=== PATIENT | male | born 1965 | race Caucasian/White ===

== ENCOUNTER 2018-06-28 11:44 | Emergency (ER) | payer BC ==
[2018-06-28 12:19] VITALS: RESP 18; TEMP 97.9
--- NOTE | 2018-06-28 14:09 | C.PDOC ---
History Of Present Illness 52 y/o male brought to ed by family s/p laceration to right index finger from a saw while cutting something. tdap utd per family. pt right handed. occurred 1130 am today. Time Seen by Provider: 06/28/18 13:36 Chief Complaint (Nursing): Abnormal Skin Integrity History Per: Patient History/Exam Limitations: no limitations Onset/Duration Of Symptoms: Hrs Current Symptoms Are (Timing): Still Present Severity: Moderate Past Medical History Reviewed: Historical Data, Nursing Documentation, Vital Signs Vital Signs: Last Vital Signs Temp 97.9 F 06/28/18 11:57 Pulse 78 06/28/18 11:57 Resp 18 06/28/18 11:57 BP 134/94 H 06/28/18 11:57 Pulse Ox 95 06/28/18 11:57 - Medical History PMH: HTN, Hyperlipidemia Other Surgeries: Hx of surgeries Family History: States: No Known Family Hx - Social History Hx Alcohol Use: No Hx Substance Use: No - Immunization History Hx Tetanus Toxoid Vaccination: Yes Hx Influenza Vaccination: No Hx Pneumococcal Vaccination: No Review Of Systems Constitutional: Negative for: Fever, Chills Skin: Positive for: Other (laceration to right index finger) Physical Exam - Physical Exam Appears: Non-toxic, No Acute Distress Skin: Warm, Dry, Other (approx 2.5 cm curved laceration and 1 cm linear laceration to right index finger) Head: Atraumatic, Normacephalic Extremity: Normal ROM, No Tenderness, Capillary Refill (< 2 seconds), No Swelling Neurological/Psych: Oriented x3, Normal Speech, Normal Cognition, Normal Motor, Normal Sensation ED Course And Treatment O2 Sat by Pulse Oximetry: 95 (RA) Pulse Ox Interpretation: Normal Laceration - Laceration Repair Right Index Finger 1st Laceration Wound Length (In cm): 2.5 cm Description Of Wound: Irregular (curved) Wound Cleansed With: Betadine, Sterile Saline Anesthesia: Lidocaine 1% Wound Examination: Irrigated With Saline, No FB With Wound Exploration, No Tendon Injury With Wound Exploration Wound Closure: Suture (7 sutures) Suture Technique And Material Used: Nylon (4-0 Nylon) Wound Complexity: Simple Right Index Finger 2nd Laceration Wound Length (In cm): 1 cm Description Of Wound: Linear Wound Cleansed With: Betadine, Sterile Saline Anesthesia: Lidocaine 1% Wound Examination: Irrigated With Saline, No FB With Wound Exploration, No Tendon Injury With Wound Exploration Wound Closure: Suture (3 sutures) Suture Technique And Material Used: Nylon (4-0 Nylon) Wound Complexity: Simple Medical Decision Making Medical Decision Making: tdap utd. laceration repaired. bscitracin applied. d/c home with keflex. suture removal 7 days. Disposition Counseled Patient/Family Regarding: Diagnosis, Need For Followup, Rx Given - Disposition Disposition: HOME/ ROUTINE Disposition Time: 16:35 Condition: GOOD Additional Instructions: Keep finger clean and dry with dressing on until tomorrow. Tomorrow- remove dressing, wash gently with soap and water, then reapply antibiotic ointment and clean dressing. Take antibiotics as prescribed. Take Tylenol for pain if needed. Suture removal in 7-10 days. Return to E Rfor any sign of infection such as redness, swelling, fever, pus from wound or any other concerns. Prescriptions: Acetaminophen [Tylenol 325mg tab] 650 mg PO Q4 #50 tab Bacitracin OINT 1 applic TOP BID #1 tube Cephalexin [cephalexin] 500 mg PO QID #28 cap Instructions: Laceration Repair With Stitches (DC) Forms: General Discharge Instructions, [facility] (Iranian), Work Excuse - Clinical Impression Clinical Impression: Laceration of right index finger
[2018-06-28] MEDS ORDERED: Lidocaine 1% Inj (20ml) INFIL ONE (14:17)
[2018-06-28] MEDS ORDERED: Tdap Vaccine 0.5 ml Vial (10-64 yrs) IM ONE (14:17)
[2018-06-28] MEDS ORDERED: Bacitracin 500 Units/gm Oint Foilpak UD TOP ONE (14:17)
[2018-06-28] MEDS ORDERED: Bacitracin 500 Units/gm Oint Foilpak UD ONE (14:26)
[2018-06-28] MEDS ORDERED: Lidocaine Hydrochloride 5 ML INJ ONE ×2 (14:26→15:02)
[2018-06-28 17:00] VITALS: BP 149/84; PULSE 68
[2018-07-01 14:53] VITALS: O2SAT 95
== END 2018-06-28 17:01 | disposition home or self-care (01) ==
LOC: C.ER 11:44
DX: S61.210A Laceration without foreign body of right index finger without damage to nail, initial encounter (principal); W31.2XXA Contact with powered woodworking and forming machines, initial encounter; I10 Essential (primary) hypertension; E78.5 Hyperlipidemia, unspecified

== ENCOUNTER 2018-07-08 07:56 | Emergency (ER) | payer BC ==
[2018-07-08 08:02] VITALS: BMI 28.6
[2018-07-08 08:05] VITALS: BP 127/99; PULSE 72; TEMP 98.1; O2SAT 98
--- NOTE | 2018-07-08 08:19 | C.PDOC ---
History Of Present Illness 52 years old male presents to ED for suture removal. Patient reports right index finger laceration x10 days ago. Denies any pain or physical complaints. Time Seen by Provider: 07/08/18 08:05 Chief Complaint (Nursing): Suture/Staple Removal History Per: Patient History/Exam Limitations: no limitations Onset/Duration Of Symptoms: Hrs Current Symptoms Are (Timing): Still Present Location Of Injury: Right: Hand (Index finger ) Quality Of Symptoms: denies: Painful, Itching, Swollen, Draining Recent travel outside of the [place]: No Past Medical History Reviewed: Historical Data, Nursing Documentation, Vital Signs Vital Signs: Last Vital Signs Temp 98.1 F 07/08/18 08:02 Pulse 72 07/08/18 08:02 Resp 16 07/08/18 08:02 BP 127/99 H 07/08/18 08:02 Pulse Ox 98 07/08/18 08:02 - Medical History PMH: HTN, Hyperlipidemia Family History: States: No Known Family Hx - Social History Hx Alcohol Use: No Hx Substance Use: No - Immunization History Hx Tetanus Toxoid Vaccination: Yes Hx Influenza Vaccination: No Hx Pneumococcal Vaccination: No Review Of Systems Except As Marked, All Systems Reviewed And Found Negative. Constitutional: Negative for: Fever, Chills Gastrointestinal: Negative for: Nausea, Vomiting, Diarrhea Skin: Negative for: Rash Neurological: Negative for: Weakness, Numbness Physical Exam - Physical Exam Appears: Non-toxic, No Acute Distress Skin: Normal Color, Warm, Dry, No Rash Chest: Symmetrical, No Tenderness Cardiovascular: Rhythm Regular, No Murmur Respiratory: Normal Breath Sounds, No Rales, No Rhonchi, No Wheezing Extremity: Normal ROM, Other (No signs of infection, drainage, or bleeding. Little dehiscence after suture removal. Removed 10 Stitches. ) Extremity: Bilateral: Atraumatic, Normal Color And Temperature, Normal ROM Pulses: Left Radial: Normal, Right Radial: Normal Neurological/Psych: Oriented x3, Normal Speech ED Course And Treatment O2 Sat by Pulse Oximetry: 98 (RA) Pulse Ox Interpretation: Normal Progress Note: Plan: Bacitracin and cover wound. Patient currently denies any pain or other complaints. Care instructions given and patient is in agreement. Patient is stable for discharge and will be discharged. Return if symptoms persist or worsen. Disposition - Disposition Disposition: HOME/ ROUTINE Disposition Time: 08:18 Condition: STABLE Additional Instructions: Follow up with PMD within 1-2 days. Return to ED if feel worse. Instructions: Stitches Removal Forms: [facility] (Belarusian) - Clinical Impression Clinical Impression: Removal of suture - PA / LINE DIRECTOR / Resident Statement MD/DO has reviewed & agrees with the documentation as recorded. - Scribe Statement The provider has reviewed the documentation as recorded by the Scribe Irwin Baez All medical record entries made by the Scribe were at my direction and pers onally dictated by me. I have reviewed the chart and agree that the record accurately reflects my personal performance of the history, physical exam, medical decision making, and the department course for this patient. I have also personally directed, reviewed, and agree with the discharge instructions and disposition.
[2018-07-08 08:28] VITALS: RESP 18
== END 2018-07-08 08:28 | disposition home or self-care (01) ==
LOC: C.ER 07:56
DX: S61.210D Laceration without foreign body of right index finger without damage to nail, subsequent encounter (principal); I10 Essential (primary) hypertension; E78.5 Hyperlipidemia, unspecified